=== PATIENT | female | born 1985 | race African-American/Black ===

== ENCOUNTER 2019-04-02 01:17 | Inpatient (IN) | payer OTHER ==
--- NOTE | 2019-04-02 01:18 | PDOC ---
History of Present Illness - General Stated Complaint: ECTOPIC Time Seen by Provider: 04/02/19 01:18 - History of Present Illness Initial Comments: 04/02/19 01:35 Ms. Cope is a 33 yo female w/ pmh of known ectopic s/p 2 rounds of methotrexate w/ Beta-HCG's of 6000, 2000, and most recently 3000 who presents for evaluation of sudden onset left pelvic pain earlier this evening. Patient reports she was out with friends when pain started. Patient denies any trauma or preceding factors and came directly to ER. Ms. Cope also reports vomiting after pain started. Denies any other symptoms at this time. The patient denies chest pain, shortness of breath, headache and dizziness. Denies fever, chills, diarrhea and constipation. Denies dysuria, frequency, urgency and hematuria. Past History - Past Medical History Allergies/Adverse Reactions: Allergies Allergy/AdvReac Type Severity Reaction Status Date / Time No Known Allergies Allergy Verified 04/02/19 01:56 Home Medications: Ambulatory Orders NK [No Known Home Medication] 04/02/19 Review of Systems - Review of Systems Comments:: 04/02/19 01:42 GENERAL/CONSTITUTIONAL: No fever or chills. No weakness. HEAD, EYES, EARS, NOSE AND THROAT: No change in vision. No ear pain or discharge. No sore throat. CARDIOVASCULAR: No chest pain or shortness of breath RESPIRATORY: No cough, wheezing, or hemoptysis. GASTROINTESTINAL: +Abdominal /pelvic pain w/ N/V as described. GENITOURINARY: No dysuria, frequency, or change in urination. MUSCULOSKELETAL: No joint or muscle swelling or pain. No neck or back pain. SKIN: No rash NEUROLOGIC: No headache, vertigo, loss of consciousness, or change in strength/ sensation. ENDOCRINE: No increased thirst. No abnormal weight change HEMATOLOGIC/LYMPHATIC: No anemia, easy bleeding, or history of blood clots. ALLERGIC/IMMUNOLOGIC: No hives or skin allergy. *Physical Exam - Physical Exam Comments: 04/02/19 01:42 GENERAL: Awake, alert, and fully oriented, in no acute distress HEAD: No signs of trauma, normocephalic, atraumatic EYES: PERRLA, EOMI, sclera anicteric, conjunctiva clear ENT: Auricles normal inspection, hearing grossly normal, nares patent, oropharynx clear without exudates. Moist mucosa NECK: Normal ROM, supple, no lymphadenopathy, JVD, or masses LUNGS: No distress, speaks full sentences, clear to auscultation bilaterally HEART: Regular rate and rhythm, normal S1 and S2, no murmurs, rubs or gallops, peripheral pulses normal and equal bilaterally. ABDOMEN: +Lower pelvic pain as described. Soft, normoactive bowel sounds. No guarding, no rebound. No masses EXTREMITIES: Normal inspection, Normal range of motion, no edema. No clubbing or cyanosis. NEUROLOGICAL: Cranial nerves II through XII grossly intact. Normal speech, normal gait, no focal sensorimotor deficits SKIN: Warm, Dry, normal turgor, no rashes or lesions noted. ED Treatment Course - LABORATORY CBC & Chemistry Diagram: 04/02/19 01:20 04/02/19 01:20 Medical Decision Making - Medical Decision Making 04/02/19 01:54 Ms. Cope is a 33 yo female w/ pmh as described who presents for evaluation of pain as described. Patient sent to US immediately which revealed significant fluid concerning for rupture. ENTERPRISE APPLICATION ANALYST paged. Patient labs sent for pre-op. 04/02/19 03:30 US significant for free fluid c/w rupture. ENTERPRISE APPLICATION ANALYST evaluated and will take to OR. Admitting for further care / Operative treatment. *DC/Admit/Observation/Transfer Diagnosis at time of Disposition: Ruptured ectopic - Discharge Dispostion Decision to Admit order: Yes - Referrals - Patient Instructions - Post Discharge Activity
[2019-04-02] MEDS ORDERED: ONDANSETRON 4 MG/2 ML VIAL IVPUSH ONE (01:20)
[2019-04-02] MEDS ORDERED: morphine CARPU-JECT 4 MG/1 ML DISP.SYRIN IVPUSH ONE (01:20)
[2019-04-02] MEDS ORDERED: morphine SULFATE 4 MG/ML VIAL ONE ×2 (01:24→01:59)
[2019-04-02 01:55] LABS: EOS % 0.4 % (0-4.5); NEUT % 67.2 % (42.8-82.8); PLATELET COUNT 316 K/MM3 (134-434); WHITE BLOOD COUNT 9.7 K/mm3 (4.0-10.0)
[2019-04-02 01:56] VITALS: BMI 36.6
[2019-04-02 01:58] LABS: BASO % 1.1 % (0-2.0); HEMATOCRIT 41.7 % (32.4-45.2); HEMOGLOBIN 13.9 GM/dL (10.7-15.3); LYMPH % 23.8 % (8-40); MCH 31.9 pg (25.7-33.7); MCHC 33.3 g/dl (32.0-36.0); MEAN CELL VOLUME 95.5 fl (80-96); MONO % 7.5 % (3.8-10.2); RBC 4.36 M/mm3 (3.60-5.2); RDW 12.8 % (11.6-15.6)
--- NOTE | 2019-04-02 01:58 | PDOC ---
Documentation entered by Evelio Muniz SCRIBE, acting as scribe for Gabriella Ventura MD. Gabriella Ventura MD: This documentation has been prepared by the Cristy chatman Xhesika, SCRIBE, under my direction and personally reviewed by me in its entirety. I confirm that the documentation accurately reflects all work, treatment, procedures, and medical decision making performed by me. Attending Attestation - Resident Resident Name: Elder Philip - ED Attending Attestation I have performed the following: I have examined & evaluated the patient, The case was reviewed & discussed with the resident, I agree w/resident's findings & plan - HPI HPI: 04/02/19 01:39 The patient is a 33 year old female with a significant PMH of fibroids and Ectopic who presents to the emergency department via EMS with L pelvic pain. The patient states she follows with Dr. Ludwig, had a recent Ectopic and is on her 2nd round of methotrexate shots at [facility] with Beta -HCG's of 6000, 2000, and most recently 3000. Patient notes she endorsed 6 episodes of vomiting on her way to the ED from [facility]. Patient states she last ate at 8 pm. The patient denies chest pain, shortness of breath, headache and dizziness. Denies fever, chills, cough, nausea, diarrhea and constipation. Denies dysuria, frequency, urgency and hematuria. Allergies: NKDA TUNNEL KILN OPERATOR: Dr. Ludwig - Physicial Exam PE: 04/02/19 01:40 GENERAL: Awake, alert, and fully oriented, in no acute distress HEAD: No signs of trauma EYES: PERRLA, EOMI, sclera anicteric, conjunctiva clear ENT: Auricles normal inspection, hearing grossly normal, nares patent, oropharynx clear without exudates. Moist mucosa NECK: Normal ROM, supple, no lymphadenopathy, JVD, or masses LUNGS: Breath sounds equal, clear to auscultation bilaterally. No wheezes, and no crackles HEART: Regular rate and rhythm, normal S1 and S2, no murmurs, rubs or gallops ABDOMEN: (+) LLQ pain. Soft, nontender, normoactive bowel sounds. No guarding, no rebound. No masses EXTREMITIES: Normal range of motion, no edema. No clubbing or cyanosis. No cords, erythema, or tenderness NEUROLOGICAL: Cranial nerves II through XII grossly intact. Normal speech SKIN: Warm, Dry, normal turgor, no rashes or lesions noted. - Medical Decision Making 04/02/19 01:35 pt has LLQ pain. SHe has normal rest of exam. Pain began tonight at [facility]. Pt ate dinner last at 8PM She has no fever, but she has been getting methotrexate for ectopic in the left fallopian tube; she was getting shots of methotrexate at [facility]. 04/02/19 01:53 [employer] came to tell us that fluid in pelvis is consistent with ruptured ectopic. I called full stack python developer TUNNEL KILN OPERATOR Joleen who is aware. We will notify him further once her labs return 04/02/19 02:21 CBC normal and chem also normal; Dr. Goodrich aware. We are all waiting for the beta quant to come back 04/02/19 03:14 Patient Name: JIGNESH LOYD THIS IS A PRELIMINARY REPORT FROM [facility] DATE OF SERVICE: 2019-04-02 01:30:04 IMAGES: 21 EXAM: TRANSVAGINAL US PREG and pelvic duplex HISTORY: Recent methotrexate treatment for ectopic . Rule out fallopian tube rupture COMPARISON: None. FINDINGS: Endovaginal pelvic ultrasound: Evaluation is limited secondary to the patient inability to tolerate the exam. The endometrium is 7millimeters in thickness which is normal. There are no fibroids. The right ovary measures 4.8centimeters in length, appears normal and demonstrates normal flow. Left adnexa measures 5.0centimeters in length and appears irregular , which may represent the known ectopic and hematoma. There is a moderate amount of complex free fluid, likely blood free fluid. Pelvic duplex: There is normal arterial and venous flow in both ovaries. IMPRESSION: Ill-defined left adnexal mass, possibly the known ectopic and moderate amount of presumed pelvic blood. 04/02/19 03:49 Dr. Goodrich accepted the patient and he evaluated at the bedside and he will be taking her to the OR.
[2019-04-02 02:16] LABS: ALBUMIN 4.7 g/dl (3.4-5.0); BILIRUBIN,TOTAL 0.4 mg/dL (0.2-1); CALCIUM 9.1 mg/dL (8.5-10.1); TOT PROT 8.7 g/dl (6.4-8.2)
[2019-04-02 02:26] LABS: INR 1.18 (0.83-1.09); PROTHROMBIN TIME (PATIENT) 13.9 SEC (9.7-13.0)
--- NOTE | 2019-04-02 03:40 | HP ---
Past Medical History - Primary Care Physician PCP:: Wesly Goodrich - Admission Chief Complaint: severe low abdominal pain, vomitting, r/o ruptured ectopic History of Present Illness: 33 yo f g 1 p1 known case of ectopic txed with multiple dose of methotrexate .c/o of sudden onset of abdominal pain ,pain score 10 with sevreral episode of vomiting in ambulance, pain radiates to RUQ area a, no fever , no dizziness , TVS , free fluid in pelvis , LT adenexa hematoma, consistant with ruptured ectopic , ,advised laparoscopic salpingectomy, risks of procedure including but not limitted to infection, bleeding, injury to bowel, bladder ,vesselspostop complication discussed , no tx also discused History Source: Patient Limitations to Obtaining History: No Limitations - Past Medical History ...: 2 ...Para: 1 Additional OB History: one - Past Surgical History Hx Myomectomy: No Hx Transabdominal Cerclage: No - Smoking History Smoking history: Never smoked Have you smoked in the past 12 months: No - Alcohol/Substance Use Hx Alcohol Use: No History of Substance Use: reports: None - Social History Usual Living Arrangement: Yes: With Spouse History of Recent Travel: No Home Medications - Allergies Allergies/Adverse Reactions: Allergies Allergy/AdvReac Type Severity Reaction Status Date / Time No Known Allergies Allergy Verified 04/02/19 01:56 - Home Medications Home Medications: Ambulatory Orders NK [No Known Home Medication] 04/02/19 Review of Systems - Review of Systems Constitutional: reports: Weakness Eyes: reports: No Symptoms HENT: reports: No Symptoms Neck: reports: No Symptoms Cardiovascular: reports: No Symptoms Respiratory: reports: No Symptoms Gastrointestinal: reports: Abdominal Pain, Nausea, Vomiting Genitourinary: reports: Vaginal Bleeding Breasts: reports: No Symptoms Reported Musculoskeletal: reports: No Symptoms Integumentary: reports: No Symptoms Neurological: reports: No Symptoms Endocrine: reports: No Symptoms Hematology/Lymphatic: reports: No Symptoms Psychiatric: reports: No Symptoms Physical Exam-CRUDE TESTER Vital Signs: Vital Signs Temperature 98.1 F 04/02/19 01:25 Pulse Rate 90 04/02/19 03:00 Respiratory Rate 20 04/02/19 03:00 Blood Pressure 131/71 04/02/19 03:00 O2 Sat by Pulse Oximetry (%) 99 04/02/19 03:00 Constitutional: Yes: Obese Eyes: Yes: WNL HENT: Yes: WNL Neck: Yes: WNL Cardiovascular: Yes: WNL Respiratory: Yes: WNL Gastrointestinal: Yes: Soft, Tenderness, Tenderness, Rebound Renal/: Yes: WNL Pelvis: Yes: Tenderness External Genitalia: Yes: Normal Vaginal Exam: Yes: Bleeding Cervix: Yes: Bleeding Uterus: Yes: Normal, Tender Adnexa: Tender: Right, Bilateral Musculoskeletal: Yes: WNL Extremities: Yes: WNL Edema: No Integumentary: Yes: WNL Neurological: Yes: WNL ...Motor Strength: WNL Psychiatric: Yes: WNL Labs: CBC, BMP 04/02/19 01:20 04/02/19 01:20 Problem List - Problem (1) Ruptured ectopic Code(s): O00.90 - UNSPECIFIED ECTOPIC WITHOUT INTRAUTERINE Assessment/Plan laparoscopic LT salpingectomy, possible laparotomy, risks discussed
[2019-04-02] MEDS ORDERED: PROPOFOL 20 ML ONE (04:33)
[2019-04-02] MEDS ORDERED: LIDOCAINE HCL/PF 2% SDV 5ML VIAL ONE (04:33)
[2019-04-02] MEDS ORDERED: fentaNYL CITRATE 250 MCG/5 ML VIAL ONE ×2 (04:33→06:35)
[2019-04-02] MEDS ORDERED: SUCCINYLCHOLINE CHLORIDE 200 MG/10 ML SYRINGE ONE (04:33)
[2019-04-02] MEDS ORDERED: PROMETHAZINE HCL 25 MG/1 ML VIAL IVPUSH PRN (04:39)
[2019-04-02] MEDS ORDERED: oxyCODONE HCL 5 MG TABLET PO PRN ×2 (04:39→08:13)
[2019-04-02] MEDS ORDERED: ONDANSETRON 4 MG/2 ML VIAL IVPUSH PRN ×2 (04:39→08:13)
[2019-04-02] MEDS ORDERED: ceFAZolin SODIUM 1 GM VIAL IVPB ONE (04:59)
[2019-04-02] MEDS ORDERED: ROCURONIUM BROMIDE 50 MG/5 ML SYRINGE ONE (04:59)
[2019-04-02] MEDS ORDERED: DEXAMETHASONE SOD PHOSPHATE 4 MG/1 ML VIAL ONE (06:35)
[2019-04-02] MEDS ORDERED: KETOROLAC TROMETHAMINE 30 MG/1 ML VIAL ONE (06:35)
[2019-04-02] MEDS ORDERED: NEOSTIGMINE METHYLSULFATE 0.5 MG/ML - 10 ML MDV ONE (06:36)
[2019-04-02] MEDS ORDERED: GLYCOPYRROLATE 0.2 MG/1 ML VIAL ONE ×2 (06:36)
[2019-04-02] MEDS ORDERED: HYDROmorphone *PCA* 10MG/50ML DISP.SYRIN PCA SCH (07:30)
[2019-04-02] MEDS ORDERED: HYDROmorphone *PCA* 10MG/50ML DISP.SYRIN ONE (07:33)
[2019-04-02] MEDS ORDERED: ELECTROLYTE-148 SOLN 1,000 ML IV SCH (08:15)
[2019-04-02] MEDS ORDERED: PROMETHAZINE HCL 25 MG/1 ML VIAL IVPB PRN (08:23)
--- NOTE | 2019-04-02 08:37 | OP ---
Operative Note - Note: Operative Date: 04/02/19 Pre-Operative Diagnosis: ruptured LT tubal ectopic Operation: attempted laparoscopy, exp. lap. lysis of pelvic adhesions, LT salpingectomy Findings: hemoperitonium, pelvic adhesions, fibroid uterus, ruptured LT tubal ectopic Surgeon: Wesly Goodrich Supervisor Water Treatment Plant: [employer] Anesthesiologist/COMMUNITY HEALTH COORDINATOR: Jcarlos Tomlinson Anesthesia: General Specimens Removed: LT tube and content Estimated Blood Loss (mls): 100 Drains & Tubes with Location: sweeney Blood Volume Replaced (mls): 0 Operative Report Dictated: Yes
[2019-04-02] MEDS ORDERED: DEXTROSE 5%-LACTATED RINGERS 1,000 ML IV SCH (09:00)
[2019-04-02] MEDS: CEFAZOLIN 2 GM/D5W 2 GM/50 ML ML IVPB SCH ×2 (11:06→18:50)
[2019-04-02 12:01] LABS: EPI CELLS 7.1 /HPF (0-5/HPF); HYALINE CASTS 18 /lpf (0-8); PH,URINE 5.5 (5.0-8.0); URINE APPEARANCE TURBID; URINE BACTERIA 218.6 /hpf (NEGATIVE); URINE BILIRUBIN NEGATIVE (NEGATIVE); URINE COLOR YELLOW; URINE GLUCOSE (UA) NEGATIVE (NEGATIVE); URINE KETONE 1+ (NEGATIVE); URINE LEUK ESTERASE NEGATIVE (NEGATIVE); URINE NITRITE NEGATIVE (NEGATIVE); URINE PROTEIN 1+ (NEGATIVE); URINE RBC 1 /hpf (0-4); URINE WBC 1 /hpf (0-5)
[2019-04-02 14:22] LABS: URINE CRYSTALS AMORPHOUS URATES /hpf
[2019-04-02] MEDS: IBUPROFEN 800 MG/8 ML IJ IVPB PRN ×2 (14:42→21:28)
--- NOTE | 2019-04-02 18:45 | OP ---
DATE OF OPERATION: 04/02/2019 PREOPERATIVE DIAGNOSIS: Ruptured left tubal ectopic . POSTOPERATIVE DIAGNOSES: Ruptured left tubal ectopic , fibroid uterus, pelvic adhesions. PROCEDURE: Attempted laparoscopy, exploratory laparotomy, left salpingectomy, and lysis of pelvic adhesions, SURGEON: Ron Yin MD ANALYTICAL SCIENTIST: ROSIBEL Ho ANESTHESIA: General. ANESTHESIOLOGIST: Jcarlos Tomlinson MD ESTIMATED BLOOD LOSS: 100 mL. OPERATION: The patient was taken to the operating room on adequate general anesthesia in dorsal lithotomy position. Examination under anesthesia revealed external genitalia to be normal, vagina was normal, cervix was clean with no gross lesion. Uterus was enlarged, irregular. Adnexa: No masses were palpable. Then with a weighted speculum in the vagina, anterior lip of the cervix was grasped with single-tooth tenaculum. Uterine cavity was sounded to 9 cm. Then Hulka was introduced into the uterine cavity for manipulation. Dalton was inserted. Patient was placed in dorsal lithotomy position and abdomen and vagina prepped and draped. Then a small subumbilical area incision was made in the skin with a knife. This incision was carried down to the fascia, but because of the previous umbilical hernia surgery, it was very difficult to see and to grasp the peritoneum because it was deep and had scarring. Several attempts were made to enter the peritoneum, unable to do because of the adhesions and also the obesity. Then after several attempts, procedure was terminated. Fascia was brought together with interrupted suture of 0 Vicryl and then the umbilical skin was closed with 4-0 Biosyn interrupted suture. Then patient was put in the dorsal supine position and prepped and draped again for the laparotomy. A Pfannenstiel abdominal skin incision was made. Abdominal wall was cut layer by layer until peritoneum was exposed and incised. Upon entering abdominal cavity, hemoperitoneum was noted. The blood was suctioned. Bowels were packed away. There was a large ruptured tubal ectopic with bleeding and this tube was adherent to the left pelvic sidewall, so these adhesions were lysed with blunt and sharp dissection and the tube was delivered to the surface and then with the LigaSure cautery along the mesosalpinx, cauterized and cut and the tube was removed. There was a small amount of bleeding from the left pelvic sidewall where the tube was attached. This area was sutured with interrupted suture of 2-0 Vicryl and hemostasis was established. No active bleeding was seen. Pelvic cavity several times irrigated. Peritoneum was closed with 0 Biosyn continuous suture. Muscles were brought together with interrupted suture of 0 Biosyn. Fascia was closed with 0 Biosyn continuous suture, subcutaneous fat with interrupted suture of 2-0 Vicryl and 3-0 Vicryl, and the skin was closed with 4-0 Biosyn in subcuticular continuous suture. Patient tolerated procedure well, left the OR in good condition. RON YIN M.D. [id number]
[2019-04-03] MEDS: IBUPROFEN 800 MG/8 ML IJ IVPB PRN (06:16)
[2019-04-03] MEDS ORDERED: BISACODYL 10 MG SUPP.RECT RC PRN (07:21)
--- NOTE | 2019-04-03 08:35 | PN ---
Progress Note (short form) - Note Progress Note: Anesthesia POD#1 S/P OPen Salpingectomy under GA,IV COMMODITY MERCHANT VSS,pain is under control with non narcotics,no N/V now. Food is advanced. A/P Discontinue the COMMODITY MERCHANT and continue the oral meds for pain. Flaquita Rich MD.
[2019-04-03 08:39] LABS: HEMATOCRIT 32.2 % (32.4-45.2); HEMOGLOBIN 10.9 GM/dL (10.7-15.3); MCH 32.3 pg (25.7-33.7); MCHC 33.8 g/dl (32.0-36.0); MEAN CELL VOLUME 95.5 fl (80-96); PLATELET COUNT 254 K/MM3 (134-434); RBC 3.37 M/mm3 (3.60-5.2); RDW 12.8 % (11.6-15.6)
[2019-04-03] MEDS ORDERED: PCA PUMP KEY 1 EACH EACH ONE (09:24)
[2019-04-03] MEDS: IBUPROFEN 600 MG TABLET (FP) PO PRN ×2 (13:24→21:13)
[2019-04-03] MEDS: ACETAMINOPHEN 325 MG TABLET (FP) PO PRN ×2 (13:26→21:14)
[2019-04-03] MEDS: SIMETHICONE 80 MG TAB.CHEW (FP) PO PRN ×2 (13:26→21:13)
--- NOTE | 2019-04-03 16:44 | PN ---
Progress Note (short form) - Note Progress Note: pod 1 s/p , s/p laparotomy, lt salpingectomy has mild low abdominal discomfort no n/v abdomen soft, no distension ,no cva , BS are present no calf tenderness no vaginal bleeding CBC, BMP 04/03/19 06:57 04/02/19 01:20 Last Vital Signs Temp Pulse Resp BP Pulse Ox 98.8 F 84 18 119/55 L 96 04/03/19 13:15 04/03/19 13:15 04/03/19 13:15 04/03/19 13:15 04/02/19 08:35 plan ambulate, advnce diet pain management Problem List - Problems (1) Ruptured ectopic Code(s): O00.90 - UNSPECIFIED ECTOPIC WITHOUT INTRAUTERINE
[2019-04-04] MEDS: IBUPROFEN 600 MG TABLET (FP) PO PRN (07:10)
[2019-04-04] MEDS: SIMETHICONE 80 MG TAB.CHEW (FP) PO PRN (07:11)
[2019-04-04 08:32] VITALS: BP 110/77; PULSE 67; TEMP 98.9
--- NOTE | 2019-04-04 13:12 | DS ---
Physical Exam-BATTERY BUILDER Vital Signs: Vital Signs Temperature 98.9 F 04/04/19 07:15 Pulse Rate 67 04/04/19 07:15 Respiratory Rate 18 04/04/19 07:15 Blood Pressure 110/77 04/04/19 07:15 O2 Sat by Pulse Oximetry (%) 100 04/03/19 22:00 Constitutional: Yes: Well Nourished, No Distress, Calm Eyes: Yes: WNL, Conjunctiva Clear, EOM Intact HENT: Yes: WNL, Atraumatic, Normocephalic Neck: Yes: WNL, Supple, Trachea Midline Cardiovascular: Yes: WNL, Regular Rate and Rhythm Respiratory: Yes: WNL, Regular, CTA Bilaterally Gastrointestinal: Yes: WNL ...Rectal Exam: Yes: WNL Renal/: Yes: WNL Breast(s): Yes: WNL Musculoskeletal: Yes: WNL Extremities: Yes: WNL Integumentary: Yes: WNL Wound/Incision: Yes: Clean/Dry, Well Approximated, Sutures Intact Neurological: Yes: WNL, Alert, Oriented ...Motor Strength: WNL Psychiatric: Yes: WNL, Alert, Oriented Labs: CBC, BMP 04/03/19 06:57 04/02/19 01:20 Discharge Summary Reason For Visit: RUPTURED ECTOPIC Current Active Problems Ruptured ectopic (Acute) Procedures: Principal: laparotomy, LT salpingectomy Other Procedures: uneventful Hospital Course: attempted laparoscopy Condition: Good - Instructions Diet, Activity, Other Instructions: regular diet, follow up office 2 weeks, if fever, pain, heavy vaginal bleeding calll Referrals: Wesly Goodrich MD [Staff Physician] - Disposition: HOME - Home Medications Comprehensive Discharge Medication List: Ambulatory Orders Ibuprofen [Motrin -] 600 mg PO QID #28 tablet 04/02/19 Oxycodone HCl/Acetaminophen [Percocet 5-325 mg Tablet] 1 tab PO Q6H PRN #20 tablet MDD 4 04/04/19
--- NOTE | 2019-04-04 13:30 | PN ---
Progress Note (short form) - Note Progress Note: doing well, passing gas , has low abdominal pain at site of incision CBC, BMP 04/03/19 06:57 04/02/19 01:20 Last Vital Signs Temp Pulse Resp BP Pulse Ox 98.9 F 67 18 110/77 100 04/04/19 07:15 04/04/19 07:15 04/04/19 07:15 04/04/19 07:15 04/03/19 22:00 abdomen soft., no distension, no cva, BS present no calf tenderness plan ambulate d/c home , wants to follow up with her cook dinner in one week instruction given i Problem List - Problems (1) Ruptured ectopic Code(s): O00.90 - UNSPECIFIED ECTOPIC WITHOUT INTRAUTERINE
--- NOTE | 2019-04-05 17:43 | PATH ---
Surgical Pathology Report Patient Name: JIGNESH LOYD Med. Rec. #: [id number] /Age/Gender: 1985 (Age: 33) / F Account: [id number] Location: [facility] OBS/BASE BRANDER Taken: 04/02/2019 Received: 04/03/2019 Reported: 04/05/2019 Physicians: PHYSICIAN EMERGENCY DEPT Specimen(s) Received FALLOPIAN TUBE, ECTOPIC Clinical History Ruptured ectopic Final Diagnosis FALLOPIAN TUBE, LEFT, ECTOPIC, SALPINGECTOMY: CHORIONIC VILLI IN A BACKGROUND OF HEMORRHAGE PRESENT WITHIN THE FALLOPIAN TUBE, CONSISTENT WITH ECTOPIC . Electronically Signed Isabel Monteiro M.D. Gross Description Received in formalin labeled "portion of left fallopian tube with ectopic," is a 6.5 cm in length x 3.5 cm in diameter markedly dilated portion of fallopian tube. The outer surface is linton-brown and smooth. Sectioning reveals diffuse red-brown blood clot. No definitive villous tissue or somatic tissue is identified. Recreation Teacher sections are submitted in 3 cassettes. /04/03/2019 saudi04/03/2019
== END 2019-04-04 16:00 | disposition home or self-care (01) | DRG 817 ==
LOC: JER 01:17 → JASUSAT 03:31 → J3W 08:13
PROVIDERS: ADMIT Obstetrics & Gynecology; ATTEND Obstetrics & Gynecology
PROC: 10T20ZZ Resection of Products of Conception, Ectopic, Open Approach (ICD-10-PCS; 2019-04-02)
PROC: 0DNW0ZZ Release Peritoneum, Open Approach (ICD-10-PCS; 2019-04-02)
PROC: 0UB60ZZ Excision of Left Fallopian Tube, Open Approach (ICD-10-PCS; principal; 2019-04-02 04:30)
DX: O00.102 Left tubal pregnancy without intrauterine pregnancy (principal); K66.1 Hemoperitoneum; N73.6 Female pelvic peritoneal adhesions (postinfective); D25.9 Leiomyoma of uterus, unspecified; E66.9 Obesity, unspecified; Z68.36 Body mass index [BMI] 36.0-36.9, adult
CPT/HCPCS: 36415; 74018-TC-FY; 76817-TC; 80053; 81003; 84702; 85025; 85027; 85610; 85730; 86850; 86900; 86901; 87086; 88305-TC; 94760; 99284-25